=== PATIENT | female | born 1995 | race American Indian/Alaskan Native ===

== ENCOUNTER 2016-12-14 13:36 | Outpatient (CLI) | payer OTHER ==
[2016-12-14 14:06] VITALS: BP 108/70
--- NOTE | 2016-12-15 10:42 | Ultrasound Report ---
ULTRASOUND OB LIMITED History: Leaking fluid, rupture of membranes Technique: Transabdominal ultrasound with Doppler interrogation. Gestation: Single Position: Cephalic Amniotic Fluid: Normal WILBERT = 9.3 cm Heart Rate: 164 BPM
== END 2016-12-14 16:47 | disposition home or self-care (01) ==
LOC: TRG 13:36
PROVIDERS: ATTEND Obstetrics & Gynecology
DX: O42.92 Full-term premature rupture of membranes, unspecified as to length of time between rupture and onset of labor (principal); O47.1 False labor at or after 37 completed weeks of gestation; Z3A.37 37 weeks gestation of pregnancy
CPT/HCPCS: 76815